=== PATIENT | female | born 1950 | race Caucasian/White ===

== ENCOUNTER → 2020-05-29 | Outpatient (CLI) | payer MEDICARE, OTHER ==
--- NOTE | 2020-05-29 18:01 | RAD ---
Examination: Limited right breast ultrasound. INDICATION: 69-year-old woman recalled from screening for mass in the lateral right breast. COMPARISON: Mammograms of 05/22/2020, 05/08/2018, 03/23/2015, 02/16/2014, and 01/25/2011 TECHNIQUE: Targeted ultrasound of the right breast performed focused in the lateral middle third, upper outer quadrant. FINDINGS: At the right 10:00 position 6 cm from the nipple, an oval, parallel orientation hypoechoic circumscribed mass with low-level internal echoes was identified within a ridge of dense fibroglandular tissue that correlates with the mammographic mass recalled from screening. With the benefit of extensive retrospective review, it is possible the mass recalled from screening has been present over a long period of time but is more apparent now due to gradual involutional changes in the surrounding dense fibroglandular tissue. The sonographic appearance is benign but given ambiguity about the duration of this finding, short-term follow-up mammogram and ultrasound is suggested in 6 months. 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 BI-RADS Category 3 Probably benign findings Recommend 6 month follow-up right diagnostic mammogram and targeted ultrasound. Patient entered into a reminder system with targeted due date for next mammogram Electronically signed by: Radha Escobedo MD (05/29/2020 5:59 PM) [id number]
== END ==
LOC: US 14:21
PROVIDERS: ATTEND Nurse Practitioner Gerontology
DX: R92.8 Other abnormal and inconclusive findings on diagnostic imaging of breast (principal); N63.11 Unspecified lump in the right breast, upper outer quadrant
CPT/HCPCS: 76641